=== PATIENT | female | born 1970 | race Caucasian/White ===

== ENCOUNTER 2022-04-06 11:18 | Emergency (ER) | payer MEDICAID ==
[~2022-04-06] VITALS: Ht 152 cm; Wt 70.0 kg
[2022-04-06] MEDS ORDERED: ZOLP5TAB PO ×2 (12:30→13:55)
--- NOTE | 2022-04-06 12:32 | ED General ---
General Chief Complaint: Psych/Social Disorder Stated Complaint: INSOMNIA Nursing Triage Note: PT HAS ANXIETY AND HAS NOT SLEPT FOR 6 DAYS. PT IS STARTING A NEW JOB [employer]. MOVING TO [facility] TODAY, DOES NOT WANT TO LIVE IN MOTHERS HAUNTED HOUSE. 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 PT HAS BEEN THIS WAY HER WHOLE LIFE History of Present Illness Date Seen by Provider: Apr 06, 2022 Time Seen by Provider: 11:45 Initial Comments 51-year-old female presents for chronic history of insomnia. She has been doing well except for the last 6 days. She reports inability to sleep or getting no more than 2 hours at night. She has tried [id number] me dications and melatonin with no improvement. She has used Ambien and Lunesta in the past with minimal improvement. She has a history of anxiety and is on medication for this. She has been in this area visiting family. She is leaving to start a job at [employer], tomorrow. She plans to establish with a PCP there. She has moved multiple times in the last 2 years, after her passed from [employer]. She is concerned about not sleeping and starting her new job, then exacerbating her anxiety. Timing/Duration: 6-7 Days Severity: Moderate Associated Systoms: Denies Symptoms Allergies and Home Medications Allergies Coded Allergies: No Known Drug Allergies (Unverified , 04/06/22) Patient Home Medication List Home Medication List Reviewed: Yes Zolpidem Tartrate (Ambien) 5 Mg Tablet, 5 MG PO HS Prescribed by: YVONNE JUAREZ on 04/06/22 1232 Review of Systems Review of Systems Constitutional: no symptoms reported, see HPI Psychiatric/Neurological: See HPI, Anxiety, Other (insomnia) All Other Systems Reviewed Negative Unless Noted: Yes Past Ypavtig-Gkmevz-Oajvrr Hx Patient Social History Tobacco Use?: No Substance use?: Yes Substance type: Marijuana Alcohol Use?: No Pt feels they are or have been: No Immunizations Up To Date Influenza Vaccine Up-to-Date: Yes; Up-to-Date First/Initial COVID19 Vaccinat: YES Second COVID19 Vaccination Marco Antonio: YES COVID19 Vaccine Wireless Team Member: MODERNA Past Medical History Surgery/Hospitalization HX: , WRIST SURG, BACK SURG Family Medical History Reviewed Nursing Family Hx Physical Exam Vital Signs Vital Signs - First Documented 04/06/22 11:45 Temp 36.8 Pulse 64 Resp 18 B/P (MAP) 155/86 (109) Pulse Ox 99 Capillary Refill : Less Than 3 Seconds Height, Weight, BMI Height: '" Weight: lbs. oz. kg; 30.00 BMI Method: General Appearance: No Apparent Distress, WD/WN Neck: Full Range of Motion, Normal Inspection, Non Tender, Supple Respiratory: Chest Non Tender, Lungs Clear, Normal Breath Sounds Cardiovascular: Regular Rate, Rhythm, No Edema, No Murmur, Normal Peripheral Pulses Neurologic/Psychiatric: Alert, Oriented x3, No Motor/Sensory Deficits, Normal Mood/Affect Skin: Normal Color, Warm/Dry Progress/Results/Core Measures Suspected Sepsis SIRS Temperature: Pulse: 64 Respiratory Rate: 18 Blood Pressure 155 /86 Mean: 109 Results/Orders Vital Signs/I&O 04/06/22 04/06/22 11:45 12:44 Temp 36.8 36.8 Pulse 64 64 Resp 18 18 B/P (MAP) 155/86 (109) 155/86 Pulse Ox 99 99 Capillary Refill : Less Than 3 Seconds Blood Pressure Mean: 109 Departure Impression Primary Impression: Insomnia Qualified Codes: F51.01 - Primary insomnia Additional Impression: Anxiety Disposition: 01 HOME, SELF-CARE Condition: Stable Departure-Patient Inst. Decision time for Depature: 12:15 Referrals: ZEB PATTERSON APRN (PCP/Family) Primary Care Physician Patient Instructions: Insomnia (DC) Add. Discharge Instructions: Use Ambien at bedtime. Continue all home medications. Establish with Primary Care, when you arrive in [facility]. Once you are out of Ambien, try Tylenol PM and Melatonin. Return to Emergency Dept for new/urgent health care. All discharge instructions reviewed with patient and/or family. Voiced understanding. Scripts Zolpidem Tartrate (Ambien) 5 Mg Tablet 5 MG PO HS, #3 TAB 0 Refills Prov: YVONNE JUAREZ 04/06/22 YVONNE JUAREZ Apr 06, 2022 12:32
[2022-04-06 12:44] VITALS: BP 155/86
== END 2022-04-06 12:44 | disposition home or self-care (01) ==
LOC: ER 11:23
DX: G47.00 Insomnia, unspecified (principal); F41.9 Anxiety disorder, unspecified
CPT/HCPCS: 99281